=== PATIENT | male | born 1995 | race Caucasian/White ===

== ENCOUNTER 2018-12-25 13:20 | Emergency (ER) | payer OTHER ==
--- NOTE | 2018-12-25 14:22 | ED Physician Documentation ---
History of Present Illness - Stated complaint Stated Complaint: RT KNEE INJURY - Chief complaint Chief Complaint: Ext Problem - History obtained from History obtained from: Patient - Additonal information Additional information: Patient is a previously healthy 23-year-old male presenting with right leg injury that occurred about 1 week ago. Patient reports that he was working and fell onto the ramp directly onto his right leg causing his knee to bend backwards. Patient had pain directly below the right knee with significant contusion. Patient reports that pain has resolved but has had extensive bruising and swelling throughout the entire leg. He has been able to bear weight. No changes in strength, sensation, range of motion. No other improving or worsening factors noted. Review of Systems Skin: reports: Other (Bruising to right leg) Musculoskeletal: reports: Extremity pain, Extremity swelling. denies: Joint pain, Joint swelling Neurologic: denies: Focal weakness, Numbness PD PAST MEDICAL HISTORY - Past Medical History Past Medical History: No - Past Surgical History Past Surgical History: No - Allergies Allergies/Adverse Reactions: Allergies Allergy/AdvReac Type Severity Reaction Status Date / Time No Known Drug Allergies Allergy Verified 12/25/18 13:25 PD ED PE NORMAL - Vitals Vital signs reviewed: Yes - General General: Alert and oriented X 3, No acute distress, Well developed/nourished - HEENT HEENT: Atraumatic, Moist mucous membranes - Cardiac Cardiac: Strong equal pulses - Respiratory Respiratory: No respiratory distress - Derm Derm: Warm and dry, No rash. No: Normal color (Large palpable contusion directly below right knee that is nontender with surrounding ecchymosis extending to posterior leg and down into lower leg and foot of variable age and resolution.) - Extremities Extremities: No deformity, No tenderness to palpate, Normal ROM s pain - Neuro Neuro: Alert and oriented X 3, No motor deficit, No sensory deficit - Psych Psych: Normal mood, Normal affect Results - Vitals Vitals: Vital Signs - 24 hr 12/25/18 13:23 Temperature 36.9 C Heart Rate 76 Respiratory 19 Rate Blood Pressure 159/73 H O2 Saturation 100 Oxygen O2 Source Room air PD MEDICAL DECISION MAKING - ED course Complexity details: re-evaluated patient, considered differential, d/w patient ED course: Patient presenting nearly 1 week out from original injury with extensive contusion and ecchymosis to the right lower extremity. Plain films obtained which not find evidence of underlying bony abnormality such as dislocation or fracture. Given traumatic nature, do not have high suspicion for DVT or infection at this time. Do not find evidence of compartment syndrome present. Advised patient of results and recommendations including supportive cares, return precautions, and appropriate follow-up. Patient voiced understanding and is comfortable with discharge plan. Departure - Departure Disposition: 01 Home, Self Care Clinical Impression: Contusion Qualifiers: Encounter type: initial encounter Contusion area: lower leg Laterality: right Qualified Code(s): S80.11XA - Contusion of right lower leg, initial encounter Condition: Good Instructions: ED Contusion Lower Ext Follow-Up: your,doctor [Other] - Within 3 Days Comments: Recommend elevation, ice application, ibuprofen/Tylenol as needed. Please follow-up with primary care physician and return to ED sooner if experience worsening symptoms or have other concerns.
--- NOTE | 2018-12-25 15:12 | XRAY Report ---
Reason: fall onto right leg with extensive bruising Procedure Date: 12/25/2018 Accession Number: [id number] / [id number] Procedure: XR - Knee 4 View RT CPT Code: FULL RESULT: EXAM: RIGHT KNEE RADIOGRAPHY EXAM DATE: 12/25/2018 02:55 PM. CLINICAL HISTORY: Fall onto right leg with extensive bruising. COMPARISON: None. TECHNIQUE: 3 views. FINDINGS: Bones: Normal. No fractures or bone lesions. Joints: Normal. No effusion. No subluxations. Soft Tissues: There is soft tissue swelling anterior to the upper tibia. IMPRESSION: No fracture or subluxation. Soft tissue swelling anterior to upper tibia. RADIA
--- NOTE | 2018-12-25 15:21 | XRAY Report ---
Reason: fall directly onto right leg with bruising Procedure Date: 12/25/2018 Accession Number: [id number] / [id number] Procedure: XR - Tib/Fib RT CPT Code: FULL RESULT: EXAM: RIGHT TIBIA/FIBULA RADIOGRAPHY EXAM DATE: 12/25/2018 02:53 PM. CLINICAL HISTORY: Fall directly onto right leg with bruising. COMPARISON: None. TECHNIQUE: 2 views. FINDINGS: Bones: Normal. No fracture or bone lesion. Joints: The visualized knee and ankle joints are normal. No effusions. Soft Tissues: There is anterior soft tissue swelling at the level of the upper tibia. IMPRESSION: No fracture. RADIA
[2018-12-25 15:33] VITALS: BP 146/66
== END 2018-12-25 15:36 | disposition home or self-care (01) ==
LOC: ED 13:20
DX: S80.11XA Contusion of right lower leg, initial encounter (principal); W10.2XXA Fall (on)(from) incline, initial encounter; Y99.0 Civilian activity done for income or pay
CPT/HCPCS: 1040M; 73564; 73590; 99284